=== PATIENT | male | born 2000 | race Caucasian/White ===

== ENCOUNTER 2019-10-06 08:11 | Emergency (ER) | payer BC, OTHER ==
[~2019-10-06] VITALS: Ht 175.3 cm; Wt 63.5 kg
--- NOTE | 2019-10-06 08:19 | NUR ---
PT BIB [facility] to ER bed 7
[2019-10-06 08:23] VITALS: BP 124/70
--- NOTE | 2019-10-06 08:31 | NUR ---
PATIENT ASSESSMENT COMPLETED AT THIS TIME. PATIENT SITTING UP IN BED, MOTHER AT BEDSIDE. NO NEEDS ADDRESSED AT THIS TIME. BED LOW AND LOCKED WITH SIDE RAIL UP. ASSESSMENT NOTE: BIBA WITH REPORTS OF SYNCOPE YESTERDAY AT 1700. EVENT WITNESSED BY MOTHER WHO STATES HE SUDDENLY WENT STIFF AND THEN FELL BACKWARDS AND WOKE UP 20 SECONDS LATER AND STOOD UP AGAIN WITH NO MEMORY OF THE EVENT. NO HEAD INJURY REPORTED. NO PAIN REPORTED. PATIENT STATES HE FEELS FINE AND IS JUST HERE TO GIVE HIS MOM PEACE OF MIND. LUNGS CLEAR BILATERALLY. ABD SOFT AND NON-TENDER. DENIES NVD, FEVER, COUGH, CP OR SOB. NO HX REPORTED.
--- NOTE | 2019-10-06 08:36 | NUR ---
Dr. Woods is evaluating the patient at bedside.
--- NOTE | 2019-10-06 08:49 | NUR ---
URINE COLLECTED AND SENT TO LAB.
[2019-10-06 09:01] LABS: BASOPHILS # (AUTO) 0.1 K/uL (0.00-0.22); BASOPHILS % (AUTO) 1.1 % (0.0-2.0); EOSINOPHILS % (AUTO) 0.5 % (0.0-4.0); HEMATOCRIT 46.4 % (36-52); HEMOGLOBIN 15.4 g/dL (12.0-18.0); LYMPHOCYTES # (AUTO) 1.5 K/uL (2.0-11.5); LYMPHOCYTES % (AUTO) 33.1 % (20.5-51.1); MEAN CORPUSCULAR HEMOGLOBIN 30 pg (27-31); MEAN CORPUSCULAR HGB CONC 33 g/dL (33-37); MEAN CORPUSCULAR VOLUME 91.5 fL (80-94); MONOCYTES # (AUTO) 0.3 K/uL (0.8-1.0); NEUTROPHILS # (AUTO) 2.7 K/uL (1.8-7.7); NEUTROPHILS % (AUTO) 59.3 % (42.2-75.2); PLATELET COUNT (AUTO) 186 K/uL (140-450); RED BLOOD CELL COUNT(AUTO) 5.07 MIL/uL (4.20-6.10); RED CELL DISTRIBUTION WIDTH 13.1 % (11.6-13.7); WHITE BLOOD COUNT (AUTO) 4.5 K/uL (4.5-11.0)
[2019-10-06 09:08] LABS: BARBITURATE, URINE NEG. ng/ml (NEG <=200); BENZODIAZEPINE, URINE NEG. ng/mL (NEG <=200); CANNABINOID, URINE POS. ng/mL (NEG <=50); COCAINE, URINE NEG. ng/mL (NEG <=300); OPIATE, URINE NEG. ng/mL (NEG <=2000); PHENCYCLIDINE SCREEN,URINE NEG. ng/mL (NEG <=25)
[2019-10-06 09:38] LABS: ANION GAP 12.9 (8-16); CREATININE 0.9 mg/dL (0.7-1.3); POTASSIUM 3.9 mmol/L (3.5-5.1)
[2019-10-06 09:53] LABS: ALBUMIN 4.7 g/dL (3.4-5.0); THYROID STIMULATING HORMONE 0.57 uIU/mL (0.34-3.74); TOTAL BILIRUBIN 0.9 mg/dL (0.0-1.0)
--- NOTE | 2019-10-06 10:19 | NUR ---
Dr. Woods is re-evaluating the patient at bedside.
--- NOTE | 2019-10-06 10:20 | NUR ---
Patient discharged with v/s stable. Written and verbal after care instructions given and explained. Patient verbalized understanding. Ambulatory with steady gait. All questions addressed prior to discharge. Advised to follow up with PMD.
[2019-10-06 10:22] VITALS: BP 118/68
== END 2019-10-06 10:20 | disposition home or self-care (01) ==
LOC: MED 08:11
DX: R55 Syncope and collapse (principal); R42 Dizziness and giddiness
CPT/HCPCS: 36415; 80053; 80305; 84443; 85025; 93005; 99284